=== PATIENT | female | born 1975 | race Caucasian/White ===

== ENCOUNTER 2023-07-05 18:58 | Emergency (ER) | payer BC, SELFPAY ==
[2023-07-05 19:06] VITALS: BP 176/106
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
[2023-07-05] MEDS: TORADOL 30 MG IM (21:25)
[2023-07-05] MEDS: ZOFRAN ODT (ORALLY DISINTEGRATING) 4 MG PO (21:25)
== END 2023-07-05 21:38 | disposition home or self-care (01) ==
LOC: EMR 18:58
PROVIDERS: EMERGENCY PHYSICIAN Student in an Organized Health Care Education/Training Program; FAMILY PHYSICIAN Family Medicine
DX: S06.0X0A Concussion without loss of consciousness, initial encounter (principal); W22.09XA Striking against other stationary object, initial encounter; R03.0 Elevated blood-pressure reading, without diagnosis of hypertension
CPT/HCPCS: 99284; 96372; 70450

== ENCOUNTER 2024-06-25 14:21 | Emergency (ER) | payer SELFPAY ==
[2024-06-25 14:35] VITALS: BP 134/92
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
== END 2024-06-25 17:05 | disposition home or self-care (01) ==
LOC: EMR 14:21
PROVIDERS: EMERGENCY PHYSICIAN Emergency Medicine
DX: S16.1XXA Strain of muscle, fascia and tendon at neck level, initial encounter (principal); S29.012A Strain of muscle and tendon of back wall of thorax, initial encounter; V49.40XA Driver injured in collision with unspecified motor vehicles in traffic accident, initial encounter; I10 Essential (primary) hypertension
CPT/HCPCS: 99283; 73030